=== PATIENT | male | born 1945 | race Caucasian/White ===

== ENCOUNTER 2017-06-14 08:53 | Day surgery (SDC) | payer MEDICARE ==
[~2017-06-14] VITALS: Ht 188 cm; Wt 115.0 kg
[~2017-06-14 08:53] MED LIST: AMAR4TAB PO; ANDROGEL PO; ASPI81CH5 CHEW; COZA100T PO; JANUVIA PO; METF-324 PO; RHINSUS
[2017-06-14 09:05] VITALS: BP 141/60; PULSE 76; RESP 20; TEMP 97.6; O2SAT 96
[2017-06-14] MEDS ORDERED: SODIUM CHLORIDE 0.9% 1000 ML IV SCH (09:30)
[2017-06-14] MEDS ORDERED: MULT-65 PO (09:54)
[2017-06-14] MEDS ORDERED: JANU50TA8 PO (09:54)
[2017-06-14] MEDS ORDERED: PRAV20TA2 PO (09:54)
[2017-06-14] MEDS ORDERED: BICA50TA PO (09:54)
[2017-06-14] MEDS ORDERED: GLIM4TAB PO (09:54)
[2017-06-14] MEDS ORDERED: LUPR11.22 IM (09:54)
[2017-06-14] MEDS ORDERED: ASPI81CH6 CHEW (09:54)
[2017-06-14] MEDS ORDERED: GABA300C5 PO (09:54)
[2017-06-14] MEDS ORDERED: LOSA100T PO (09:54)
[2017-06-14] MEDS ORDERED: CANA300T PO (09:54)
[2017-06-14] MEDS ORDERED: LIDOCAINE HCL 1% 20 ML VIAL ONE (10:04)
[2017-06-14] MEDS ORDERED: MIDAZOLAM HCL 2 MG/2 ML VIAL ONE ×2 (10:16→10:37)
--- NOTE | 2017-06-14 11:01 | PD.RAD ---
Post CT Procedure Prog Note Pre Procedure Diagnosis: (1) Lymphocele after surgical procedure Post Procedure Diagnosis: (1) Lymphocele after surgical procedure Procedure Date: Jun 14, 2017 Supervising Radiologist: Inder Zavala Proceduralist/Assist: Angy Estimated blood loss: none Anesthesia: Conscious Sedation Plan of Activity Patient to Unit: [facility] Patient Condition: Good See PACS Report for procedural detail/treatment Inder Zavala MD Jun 14, 2017 11:01
[2017-06-14 11:10] VITALS: BP 123/74; PULSE 62; RESP 18; O2SAT 95
[2017-06-14 11:25] VITALS: BP 124/75; PULSE 71; RESP 18; O2SAT 94
[2017-06-14 11:55] VITALS: BP 124/82; PULSE 75; RESP 16; O2SAT 75
[2017-06-14 12:25] VITALS: BP 138/82; PULSE 68; RESP 18; O2SAT 95
[2017-06-14 12:55] VITALS: BP 135/74; PULSE 75; RESP 16; O2SAT 94
--- NOTE | 2017-06-14 15:38 | RADRPT ---
EXAM DATE/TIME: 06/14/2017 10:26 [facility] COMPARISON: No previous studies available for comparison. INDICATIONS : Lymphocele. SEDATION TIME: 40 minutes MEDICATION(S): 1.) 2 mg midazolam (Versed) IV 2.) 100 mcg fentanyl (Sublimaze) IV DEVICE(S): 1.) 18 gauge Jacobs blunt needle FLUID: Total volume of 15 cc of clear, yellow fluid was removed. Fluid was discarded. MEDICAL HISTORY : Hypertension. diabetes SURGICAL HISTORY : Prostatectomy. ENCOUNTER: Initial ACUITY: 1 month PAIN SCORE: 5/10 LOCATION: Right pelvis PROCEDURE: 1.) Conscious sedation with continuous EKG and oximetry monitoring. 2.) EKG and oximetry remained stable throughout the procedure. PROCEDURE : CT guided aspiration of right pelvic fluid collection/lymphocele. The risks, benefits and alternatives to the procedure were explained and verbal and written consent w as obtained. Using automated exposure control and adjustment of the mA and/or kV according to patien t size, radiation dose was kept as low as reasonably achievable to obtain optimal diagnostic quality images. The site was prepped in sterile fashion. Full sterile technique was used, including cap, ma sk, sterile gloves and gown and a large sterile sheet. Hand hygiene and 2% chlorhexidine and/or beta dine/alcohol prep was utilized per protocol for cutaneous antisepsis. The skin and subcutaneous tiss ues were infiltrated with local anesthetic solution. DICOM format image data is available electronic ally for review and comparison. Needle was placed within the right pelvis from right anterior approach. Approximately 10 cc of straw- colored fluid aspirated. CONCLUSION: Uncomplicated aspiration of right pelvic lymphocele as above. Inder Zavala MD on June 14, 2017 at 15:34 Board Certified Radiologist. This report was verified electronically.
--- NOTE | 2017-06-14 15:42 | RADRPT ---
EXAM DATE/TIME: 06/14/2017 10:26 [facility] COMPARISON: No previous studies available for comparison. INDICATIONS : Lymphocele. SEDATION TIME: 40 MEDICATION(S): 1.) 2 mg midazolam (Versed) IV 2.) 100 mcg fentanyl (Sublimaze) IV DEVICE(S): 1.) 18 gauge Jacobs blunt needle FLUID: Total volume of 15 cc of clear, yellow fluid was removed. Fluid was discarded. MEDICAL HISTORY : Hypertension. diabetes SURGICAL HISTORY : Prostatectomy. ENCOUNTER: Initial ACUITY: 1 month PAIN SCORE: 5/10 LOCATION: Right pelvis PROCEDURE: 1.) Conscious sedation with continuous EKG and oximetry monitoring. 2.) EKG and oximetry remained stable throughout the procedure. PROCEDURE : CT guided ablation of right pelvic fluid collection/lymphocele. The risks, benefits and alternatives to the procedure were explained and verbal and written consent w as obtained. Using automated exposure control and adjustment of the mA and/or kV according to patien t size, radiation dose was kept as low as reasonably achievable to obtain optimal diagnostic quality images. The site was prepped in sterile fashion. Full sterile technique was used, including cap, ma sk, sterile gloves and gown and a large sterile sheet. Hand hygiene and 2% chlorhexidine and/or beta dine/alcohol prep was utilized per protocol for cutaneous antisepsis. The skin and subcutaneous tiss ues were infiltrated with local anesthetic solution. DICOM format image data is available electronic ally for review and comparison. After placement of the Jacobs needle within the right pelvic fluid collection and after aspiration o f approximately 15 cc of straw-colored fluid, 15 cc of Betadine was injected into this fluid collecti on endovaginally aspirated. CONCLUSION: Successful ablation of right pelvic fluid collection/lymphocele as above. Inder Zavala MD on June 14, 2017 at 15:35 Board Certified Radiologist. This report was verified electronically.
== END 2017-06-14 13:45 | disposition home or self-care (01) ==
LOC: HRAD 08:53 → HRIP 08:53 → HRAD 13:45
PROVIDERS: ATTEND Urology
DX: N99.89 Other postprocedural complications and disorders of genitourinary system (principal); I89.8 Other specified noninfective disorders of lymphatic vessels and lymph nodes; E78.00 Pure hypercholesterolemia, unspecified; G47.30 Sleep apnea, unspecified; E11.9 Type 2 diabetes mellitus without complications; M10.9 Gout, unspecified
CPT/HCPCS: 10160; 50390; 77012; 77013; 99152; 99153; J2250; J3010

== ENCOUNTER 2018-03-14 05:14 | Inpatient (IN) ==
[2018-03-14] MEDS ORDERED: Metoprolol Tartrate 25 MG Tablet PO ONE (05:39)
[2018-03-14] MEDS ORDERED: Chlorhexidine Gluconate 2% 1 Pack (2 Cloths) TOPICAL ONE (05:39)
[2018-03-14] MEDS ORDERED: Sodium Chlor 0.9% Inj 40 ML, Bupivacaine Liposo PF 1.3% Inj 20 ML P-ARTICULR SCH ×2 (05:42)
[2018-03-14] MEDS ORDERED: Chlorhexidine 4% Topical 120 APPLIC/120 ML Bottle TOPICAL SCH (05:45)
[2018-03-14] MEDS ORDERED: SODIUM CHLOR 0.9% IV.SIG SCH ×2 (06:00→08:43)
[2018-03-14] MEDS ORDERED: ceFAZolin 2 GM Premix Inj 2 GM/50 ML PIGGYBACK IV.SIG SCH (06:00)
[2018-03-14] MEDS ORDERED: TRANEXAMIC ACID IV.SIG SCH ×2 (06:00→08:43)
[2018-03-14] MEDS ORDERED: Sodium Chlor 0.9% Inj 500 ML IV.SIG SCH (06:00)
[2018-03-14] MEDS ORDERED: Famotidine PF Inj 20 MG/2 ML Vial ONE (06:19)
[2018-03-14] MEDS ORDERED: Acetaminophen 325 MG Tablet PO PRN (06:42)
[2018-03-14] MEDS ORDERED: Post-op Orders (for Pharmacy) OTHER STA (06:42)
[2018-03-14] MEDS ORDERED: Aluminum/Magnesium/Simethacone Susp 30 ML UDC PO PRN (06:42)
[2018-03-14] MEDS ORDERED: Bisacodyl 10 MG Supp RECTAL PRN (06:42)
[2018-03-14] MEDS ORDERED: Zolpidem Tartrate 5 MG Tablet PO PRN (06:42)
[2018-03-14] MEDS ORDERED: Tranexamic Acid Inj 0 MG in Sodium Chlor 0.9% Inj 100 ML IV.SIG ONE (06:42)
[2018-03-14] MEDS ORDERED: fentaNYL Citrate Inj 100 MCG/2 ML Ampul ONE (06:44)
[2018-03-14] MEDS ORDERED: Propofol Inj 500 MG/50 ML Vial ONE (06:44)
[2018-03-14] MEDS ORDERED: LEUPROLIDE 7.5 MG IM SCH (06:45)
--- NOTE | 2018-03-14 06:45 | P.DCO ---
- Physical Therapy Physical Therapy: Gait training Hip: Total hip, Protocol: Right, Posterior hip precautions, Progress to weight bearing Canvas Knee Splint: When in bed with 2 pillows between thighs Right Lower Extremity Weight Bearing: Weight bearing as tolerated Right Lower Extremity Range of Motion: Active ROM - Nursing Nursing: Dressing changes (Do not remove Dermabond Prineo (the tape that is directly on the wound).Leave the Optifoam dressing in place for 7 days. After this, daily dressing changes will be done taking care to avoid injuring or removing the Dermabond Prineo.) Dressing changes: Other (Do not remove Dermabond Prineo (the tape that is directly on the wound).Leave the Optifoam dressing in place for 7 days. After this, daily dressing changes will be done taking care to avoid injuring or removing the Dermabond Prineo.) - Case Management Consult Case Management Consult-Home Health: Yes - Certification Need for Home Health services: I have seen patient Rahat Sanchez on 03/14/18. My clinical findings support the need for the requested home health care services because: Need for Home Health Services: Deconditioned with increased weakness, Limited ability to care for self, High risk of falls Homebound Certification: I certify that my clinical findings support that this patient is homebound because: Homebound Certification: Post-op weakness, Unsteady gait/balance, Unsafe to leave home unassisted
[2018-03-14] MEDS ORDERED: Non-Formulary Drug (Sitagliptin-Metformin [Janumet] 1 TAB) PO SCH (09:00)
--- NOTE | 2018-03-14 09:09 | P.OP ---
- Preoperative Diagnosis (1) Primary osteoarthritis of right hip - Postoperative Diagnosis (1) Primary osteoarthritis of right hip Date of procedure: 03/14/18 Procedure: Right total hip arthroplasty using Monica prosthesis. Anesthesia: local (Exparel), spinal Surgeon: Chase Pfeiffer MD [employer] Systems Architect: JAVAN Smith Estimated blood loss (mL): 400 Pathology: none sent Operation and Findings: Indications and Findings: This 72-year-old man has had long-standing pain in his right hip nonresponsive to conservative measures including anti- inflammatory agents, analgesics, ambulatory aids. He has a limited ambulation tolerance to about 1 mile with pain and limping. He has difficulty ascending and descending stairs and standing from a seated position especially after sitting for any length of time. Treatment has included anti-inflammatory agents , analgesics, exercise, intra-articular corticosteroids, physical therapy, and activity modification. Physical findings showed limited range of motion with an antalgic gait and tenderness on motion. X-rays showed severe osteoarthritis with loss of articular cartilage to [id number], osteophytes and subchondral sclerosis. Operative findings: There was severe osteoarthritis in the right hip with loss of articular cartilage to [id number], femoral and acetabular osteophytes and subchondral sclerosis. Implants: The acetabular component was a 54 mm Trident II cluster shell with a 36 mm inner diameter X3 polyethylene 0 degree liner. The femoral component was Accolade II size 6 x 132 degrees. The femoral head was 36 mm outer diameter Biolox Delta ceramic with -2.5 mm offset. The patient was brought to the clean air operating suite and a spinal anesthetic was administered. The patient was positioned into a lateral position with the operative hip up on a [employer] lateral positioner. The hip and lower extremity were prepped with alcohol, Hibiclens and ChloraPrep and draped in the usual manner with the hip draped free. Patient received prophylactic antibiotics preoperatively. The patient also received tranexamic acid preoperatively. An appropriate timeout procedure was carried out. An incision was made from the midportion of the greater trochanter proximally and posteriorly paralleling the fibers of the gluteus yamel. The incision was deepened through subcutaneous tissues down to the fascia wendy and gluteus fascia. The gluteus fascia was then split longitudinally in line with its fibers up to the upper portion of the fascia wendy. With wound towels in place, the Charnley retractor was inserted. The sciatic nerve was identified and protected throughout the procedure. Dissection was then carried down to the interval between the gluteus minimus and the piriformis. A retractor was inserted. The piriformis and obturator conjoined tendon was released from the greater trochanter and reflected off the capsule. A capsulotomy was made longitudinally along the femoral neck to the base of the femoral neck and then curved distally along the posterior aspect of the greater trochanter. The hip was internally rotated. Further release of the external rotators was carried out exposing the hip. The hip was dislocated. The femoral neck was transected at the appropriate level using the oscillating saw placement of appropriate retractors. The femoral head was removed. Preparation of the femur was initiated with a box osteotome followed by a curet to identify the medullary canal. Broaching was then initiated with the size 0 broach and went in 1 size increments up to size 6. The broach handle was removed. The femoral neck was then trimmed with a calcar planar. Attention was then directed to the acetabulum. Soft tissues were debrided from the acetabulum. Retractors were placed about the acetabulum. Reaming was then initiated with the 47 millimeter reamer and went in 1-2 mm increments up to the 54 millimeter diameter reamer. A trial reduction with the 54 millimeter trial prosthesis was carried out. When this was deemed to be appropriate, the trial prosthesis was removed. The acetabulum was irrigated and cleaned. The actual prosthesis as noted above was impacted into place and seated appropriately. Drill holes were made and sounded. Appropriate sized screws were inserted to stabilize the acetabulum further. The liner as noted above was inserted into the acetabular shell and impacted into place. Osteophytes were trimmed from the acetabulum. Local anesthetic was administered throughout the area of the acetabulum and anterior aspect of the femur. The trial neck was placed on the broach for the above-noted prosthesis. The femoral head trial was placed onto the femoral neck . A trial reduction was carried out. Adjustment was made as needed. The stability, leg length and motion were excellent. There was no pistoning. The trial prosthesis was removed. The broach was removed. The femoral component was impacted into the medullary canal of the femur after irrigation and suctioning. When this was appropriately seated a trial reduction was again carried out with the trial prosthesis. There was no pistoning. The leg length was appropriate. The stability and motion were excellent. The trial prosthesis was then removed. After cleaning and drying the trunion of the femoral component, the above-noted femoral head was impacted onto the trunnion. The hip was reduced. The stability and mobility were again checked along with leg lengths as noted above. The hip was positioned appropriately and closure commenced after the remainder of the local anesthetic was injected throughout the hip. The external rotators and capsule were repaired with #1 Vicryl interrupted transosseous sutures with a Krakw technique to reattach the external rotators and capsule to the posterior aspect of the greater trochanter. The capsule itself on the superior aspect was closed with #1 Vicryl interrupted [id number] sutures. The sciatic nerve was inspected. The fascia wendy and gluteus fascia were repaired with #1 Vicryl interrupted [id number] sutures. The subcutaneous tissues were closed with 2-0 Vicryl interrupted simple sutures with buried knots. The skin was closed with a continuous subcuticular closure of 4-0 Monocryl. The wound was then approximated with Dermabond Prineo. A silver impregnated dressing was applied to the hip. A knee immobilizer was applied to the leg. The patient was transferred from the operating room to the recovery room in satisfactory condition having tolerated the procedure well. Counts are correct. Specimens: None. Estimated blood loss: 400 mL
[2018-03-14] MEDS ORDERED: *morphine SULFATE 10 MG/ML PERIprocedure ONLY ONE ×3 (09:35→09:59)
[2018-03-14] MEDS ORDERED: Ketorolac Inj 30 MG/ML (IVP) Vial ONE (10:15)
[2018-03-14] MEDS ORDERED: *HYDROmorphone PF Inj 1 MG/ML Ampul PERIprocedural Use ONLY ONE (10:17)
[2018-03-14] MEDS ORDERED: CANAGLIFLOZIN 300 MG PO SCH (11:00)
--- NOTE | 2018-03-14 11:05 | XR ---
EXAM DATE: 03/14/2018 10:49 AM EST AGE/SEX: 72 years / Male INDICATIONS: Post-op total right hip arthroplasty. CLINICAL DATA: This is the patient's initial encounter. Patient reports that signs and symptoms have been present for 1 day and indicates a pain score of 4/10. MEDICAL/SURGICAL HISTORY: Diabetes mellitus type II. Hypertension. None. COMPARISON: POI, MR HIP W/O CONTRAST, RIGHT, 09/16/2017. . FINDINGS: A right total hip arthroplasty is noted. No fracture or dislocation. Bone density is normal. Alignmen t satisfactory. Femoral and acetabular components appear well seated. CONCLUSION: Satisfactory appearance of right hip arthroplasty. Electronically signed by: Fransico Interiano MD Board Certified Radiologist 03/14/2018 11:04 AM EST
[2018-03-14] MEDS: Glimepiride 4 MG Tablet PO SCH ×2 (12:15→20:57)
[2018-03-14] MEDS ORDERED: Tetracaine 0.5% Opth Drops 4 ML Bottle RIGHT EYE ONE (13:00)
[2018-03-14] MEDS: Multivitamin/Minerals Therapeutic Tablet PO SCH (13:09)
[2018-03-14] MEDS ORDERED: ceFAZolin 1 GM Premix Inj 1 GM/50 ML PIGGYBACK IV.SIG ONE (13:23)
[2018-03-14] MEDS: ceFAZolin Inj 1 GM in Sodium Chlor 0.9% Inj 100 ML IV.SIG SCH ×2 (14:42→20:56)
[2018-03-14] MEDS ORDERED: Artificial Tears Opth Drops 15 ML Bottle RIGHT EYE PRN ×2 (15:05)
--- NOTE | 2018-03-14 15:06 | P.CONIM ---
History of Present Illness Service: [facility] Consult date: 03/14/18 Reason for Consult: medical management Primary Care Provider: Peter Guardado MD Chief Complaint: right hip pain History of Present Illness: This 72-year-old male who has PMH of severe osteoarthritis, hypertension, diabetes mellitus type 2, prostate cancer status prostatectomy who had long-standing pain in his right hip nonresponsive to conservative measures who undergone right total hip arthroplasty using [place] prosthesis for severe osteoarthritis in the right hip with loss of articular cartilage to bone on bone, femoral and acetabular osteophytes and subchondral sclerosis. Medicine team was consulted for medical management. Patient seen and examined sitting in the chair, just came back from the surgery. Patient awake alert and oriented x3, physical therapy in the room with the patient. Patient complains of right hip pain that happened after the surgery, stated he feels like there is something on the right corner of the eye. Patient denies any blurriness or vision disturbance. Patient denies any headache or dizziness. At the moment right eye discomfort, status post treatment in PACU with eyedrops, instructed to remove eye patch at 6 PM. Patient stated pain controlled on the right hip, pain at 4 out of 10 in a scale. Patient denies any chest pain or shortness of breath, denies any abdominal pain, nausea, vomiting, diarrhea or constipation. Patient denies any fever or chills. Family in room, discussed family history and medications. Nursing room, discussed treatment plan. Review of Systems Review of Systems: all other systems reviewed are negative [facility] Medical History Medical History Diabetes mellitus type 2 in nonobese (Acute) Hypertension (Acute) Osteoarthritis (Acute) Prostate cancer (Acute) Arthritis (Acute) CPAP (continuous positive airway pressure) dependence (Acute) H/O prostate cancer (Acute) High cholesterol (Acute) History of anesthesia reaction (Acute) Hot flash in male (Acute) Hypertension (Acute) Sleep apnea (Acute) Wears glasses (Acute) Wears hearing aid in both ears (Acute) Surgical History Surgical History Status post prostatectomy (Acute) H/O myringoplasty (Acute) H/O prostatectomy (Acute) H/O repair of left rotator cuff (Acute) Hx of tonsillectomy (Acute) Status post cataract extraction of both eyes with insertion of intraocular lens (Acute) Family History Family History Brother Coronary artery disease ICD (implantable cardioverter-defibrillator) battery depletion Heart transplant candidate Social History Social History Substance History: No History of Abuse Second Hand Smoke Exposure: No Smoking Status: Former smoker Tobacco Type: Cigarettes How Often Do You Have a Drink Containing Alcohol: 2 to 3 times a week Recent Travel in [facility] within the Last 8 Weeks: No Recent Out of Country Travel within the Last 8 Weeks: No Medications and Allergies Allergies Allergy/AdvReac Type Severity Reaction Status Date / Time No Known Allergies Allergy Verified 03/14/18 06:06 Home Medications Medication Instructions Recorded Confirmed Type aspirin [Aspirin Low Dose] 81 mg PO DAILY 03/07/18 03/14/18 History bicalutamide 50 mg PO DAILY 03/07/18 03/14/18 History glimepiride 4 mg PO BID 03/07/18 03/14/18 History leuprolide [Lupron Depot] 7.5 mg IM [id number] 03/07/18 03/14/18 History losartan 100 mg PO DAILY 03/07/18 03/14/18 History megestrol 20 mg PO DAILY 03/07/18 03/14/18 History qdrbljwd-suu-ZH-lycopen-lutein 1 tab PO DAILY 03/07/18 03/14/18 History [Centrum Silver Men] pravastatin 20 mg PO HS 03/07/18 03/14/18 History sitagliptin-metformin [Janumet] 1 tab PO BID 03/07/18 03/14/18 History canagliflozin [Invokana] 300 mg PO DAILY 03/14/18 03/14/18 History Active Medications: Active Medications Acetaminophen (Tylenol) 650 mg PO Q6H PRN PRN Reason: Pain Less Than 3 On Scale Hydrocodone Bitart/Acetaminophen ([place] 7.5/325) 1 tab PO Q4H PRN PRN Reason: PAIN SCALE 4 TO 6 MODERATE Last Admin: 03/14/18 11:15 Dose: 1 tab Hydrocodone Bitart/Acetaminophen ([place] 7.5/325) 2 tab PO Q6H PRN PRN Reason: PAIN SCALE 7 TO 10 SEVERE Al Hydrox/Mg Hydrox/Simethicone (Mag-Al Plus Susp Liq) 30 ml PO Q6H PRN PRN Reason: INDIGESTION Al Hydroxide/Mg Hydroxide (Milk Of Temi Rubin) 30 ml PO BID PRN PRN Reason: Mild Constipation Aspirin (Aspirin Chew) 81 mg PO BID [facility] Last Admin: 03/14/18 12:15 Dose: 81 mg Bicalutamide (Casodex) 50 mg PO DAILY [facility] Last Admin: 03/14/18 13:00 Dose: 50 mg Bisacodyl (Dulcolax Supp) 10 mg RECTAL DAILY PRN PRN Reason: SEVERE CONSITIPATION Chlorhexidine Gluconate (Hibiclens 4% Topical) 1 applicatio TOPICAL ONCE [facility] Stop: 03/18/18 05:44 Sodium Chloride 40 ml/ (Bupivacaine Liposome 20 ml) 0 ml P-ARTICULR UNSCH X1 [facility] Stop: 03/14/18 15:00 Last Admin: 03/14/18 07:45 Dose: 60 bag Diphenhydramine HCl (Benadryl) 25 mg PO Q6H PRN PRN Reason: ITCHING Glimepiride (Amaryl) 4 mg PO BID [facility] Last Admin: 03/14/18 12:15 Dose: 4 mg Sodium Chloride (Ns Inj) 500 mls @ 30 mls/hr IV.SIG .Q10H [facility] Last Admin: 03/14/18 06:45 Dose: Not Given Lactated Ringer's (Lr 1000 Ml Inj) 1,000 mls @ 30 mls/hr IV.SIG .Q24H [facility] Stop: 03/15/18 05:44 Last Admin: 03/14/18 06:15 Dose: 30 mls/hr Tranexamic Acid 1,065 mg/ (Sodium Chloride) 110.65 mls @ 200 mls/hr IV.SIG ONCE [facility] Stop: 03/14/18 15:00 Last Admin: 03/14/18 10:50 Dose: 200 mls/hr Lactated Ringer's (Lr 1000 Ml Inj) 1,000 mls @ 80 mls/hr IV.CONT .[id number] [facility] Last Admin: 03/14/18 09:50 Dose: 80 mls/hr Cefazolin Sodium 1 gm/ Sodium (Chloride) 100 mls @ 100 mls/hr IV.SIG Q6H [facility] Stop: 03/15/18 02:59 Ketorolac Tromethamine (Toradol Inj) 15 mg IV.PUSH Q6H [facility] Stop: 03/16/18 10:01 Lactulose (Lactulose Liq) 30 ml PO DAILY PRN PRN Reason: SEVERE CONSITIPATION Losartan Potassium (Cozaar) 100 mg PO DAILY [facility] Megestrol Acetate (Megace) 20 mg PO DAILY [facility] Last Admin: 03/14/18 12:15 Dose: 20 mg Metformin HCl (Glucophage) 1,000 mg PO BID [facility] Last Admin: 03/14/18 13:00 Dose: 1,000 mg Miscellaneous (Pill Splitter) 1 each OTHER UNSCH [facility] Miscellaneous Information (Mis Nursing Information) 1 each OTHER UNSCH PRN PRN Reason: SEE LABEL COMMENTS Stop: 03/15/18 11:00 Morphine Sulfate (Morphine Inj) 2 mg IV.PUSH Q3H PRN PRN Reason: BREAKTHROUGH PAIN Multivitamins/Minerals (Theragran-M) 1 tab PO DAILY [facility] Last Admin: 03/14/18 13:09 Dose: Not Given Ondansetron HCl (Zofran Odt) 4 mg PO Q6H PRN PRN Reason: NAUSEA OR VOMITING Pt Own Med: Canagliflozin [ Invokana] 300 Mg 0 each PO DAILY [facility] Pravastatin Sodium (Pravachol) 20 mg PO HS [facility] Senna/Docusate Sodium (Anne-Colace) 1 tab PO BID [facility] Sennosides (Senokot) 17.2 mg PO BID PRN PRN Reason: Moderate Constipation Sitagliptin Phosphate (Januvia) 50 mg PO BID [facility] Last Admin: 03/14/18 13:08 Dose: 50 mg Sodium Chloride (Ns Flush) 2 ml IV.FLUSH BID [facility] Last Admin: 03/14/18 11:55 Dose: Not Given Sodium Chloride (Ns Flush) 2 ml IV.FLUSH PRN PRN PRN Reason: FLUSH AFTER USING IV ACCESS Zolpidem Tartrate (Ambien) 5 mg PO HS PRN PRN Reason: INSOMNIA Physical Exam Vital signs: Vital Signs 03/14/18 06:23 03/14/18 09:28 03/14/18 09:30 Temperature 98.0 F 97.6 F Pulse Rate 82 78 79 Respiratory Rate 20 18 18 Blood Pressure 109/69 112/60 107/56 L Pulse Oximetry 98 98 100 03/14/18 09:40 03/14/18 09:45 03/14/18 10:00 Temperature Pulse Rate 69 67 Respiratory Rate 19 14 Blood Pressure 102/55 L 98/57 L Pulse Oximetry 100 100 99 03/14/18 10:15 03/14/18 10:30 03/14/18 10:45 Temperature Pulse Rate 68 67 74 Respiratory Rate 20 13 24 Blood Pressure 98/54 L 116/60 114/56 L Pulse Oximetry 97 97 03/14/18 11:00 03/14/18 11:15 03/14/18 11:16 Temperature 97.4 F L Pulse Rate 69 75 75 Respiratory Rate 17 27 H 23 Blood Pressure 115/62 113/59 L Pulse Oximetry 95 98 98 03/14/18 11:30 03/14/18 11:45 03/14/18 12:00 Temperature Pulse Rate 69 81 73 Respiratory Rate 11 L 31 H 12 Blood Pressure 128/65 119/57 L Pulse Oximetry 95 99 98 03/14/18 12:15 03/14/18 12:30 03/14/18 12:45 Temperature Pulse Rate 72 72 74 Respiratory Rate 12 15 12 Blood Pressure Pulse Oximetry 97 96 97 03/14/18 13:00 03/14/18 13:15 Temperature Pulse Rate 79 78 Respiratory Rate 17 13 Blood Pressure 106/58 L Pulse Oximetry 97 96 Intake & Output 03/13/18 03/14/18 03/14/18 18:59 06:59 18:59 Intake Total 2099.65 / 2099.65 Output Total 400 / 400 Balance 1699.65 / 1699.65 Weight 106.3 kg Intake: IV 160.65 / 160.65 Cyklokapron Inj 1,065 MG In NS 110.65 / 110.65 Inj 100 ML @ 200 mls/hr IV.SIG ONCE [facility] Rx#:[id number] Ancef 2 GM Premix Inj 2 gm In 50 / 50 50 ml @ 100 mls/hr IV.SIG 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 HEAD: Atraumatic. Normocephalic. EYES: Pupils equal and round. No scleral icterus. No injection or drainage. Slight redness on right eye, with right eye patch ENT: No nasal bleeding or discharge. Mucous membranes pink and moist. NECK: Trachea midline. No JVD. CARDIOVASCULAR: Regular rate and rhythm. RESPIRATORY: No accessory muscle use. Clear to auscultation. Breath sounds equal bilaterally. GASTROINTESTINAL: Abdomen soft, non-tender, nondistended. Hepatic and splenic margins not palpable. MUSCULOSKELETAL: Extremities without clubbing, cyanosis. Right hip incision dressed clean dry and intact, no drainage noted no redness, with trace edema NEUROLOGICAL: Awake and alert. No obvious cranial nerve deficits. Motor grossly within normal limits. Five out of 5 muscle strength in the arms and legs except limited range of motion on right lower extremity. Normal speech. PSYCHIATRIC: Appropriate mood and affect; insight and judgment normal. Results Imaging Impressions Hip X-Ray 03/14/18 06:40 CONCLUSION: Satisfactory appearance of right hip arthroplasty. ABG Impressions Hip X-Ray 03/14/18 06:40 CONCLUSION: Satisfactory appearance of right hip arthroplasty. Assessment and Plan (1) Status post total replacement of right hip: Code(s): Z96.641 - Presence of right artificial hip joint Status: Acute Plan This 72-year-old male who has PMH of severe osteoarthritis, hypertension, diabetes mellitus type 2, prostate cancer status prostatectomy who had long-standing pain in his right hip nonresponsive to conservative measures who undergone right total hip arthroplasty Severe osteoarthritis With loss of articular cartilage to bone on bone Femoral and acetabular osteophytes and subchondral sclerosis Status post right total hip arthroplasty using [place] prosthesis on 03/14/18 per [place] -Management with orthopedic team -Prophylactic IV antibiotic, Ancef -Pain management with bowel regimen -Consult PT rehab per protocol -DVT prophylaxis with aspirin twice daily per Ortho -Weightbearing as tolerated, active range of motion, to pillows in between thighs when in bed Hypertension Hyperlipidemia -Blood pressure in the low side postop -Hold parameters for blood pressure medication -Continue losartan with hold parameters, and pravastatin -Monitor blood pressure, adjust medication as needed Diabetes mellitus type 2 -Blood sugar controlled -Continue home medication glimepiride, Invokana, Januvia, and metformin -Monitor fasting blood sugar before meals and at bedtime with insulin sliding scale History of prostate cancer Status post prostatectomy Hot flashes -Continue home medications, Lupron, Megace and Casodex, Right eye pain postop History of cataract -With right eye patch -Add lubricant -Monitor DVT prophylaxis: Early ambulation, aspirin twice daily per OrthO Code Status: Full code Discussed Condition With: Patient, family and nurse Discharge Planning: Plan for discharge with home health care, per orthopedic recommendation
[2018-03-14] MEDS: Ketorolac Inj 30 MG/ML (IVP) Vial IV.PUSH SCH ×2 (17:33→22:04)
[2018-03-14] MEDS: Senna/Docusate Sodium 8.6/50 MG Tablet PO SCH (20:57)
[2018-03-14] MEDS: Morphine Inj 4 MG/ML Vial IV.PUSH PRN (21:07)
[2018-03-15] MEDS: ceFAZolin Inj 1 GM in Sodium Chlor 0.9% Inj 100 ML IV.SIG SCH (02:42)
[2018-03-15] MEDS: Ketorolac Inj 30 MG/ML (IVP) Vial IV.PUSH SCH ×2 (04:11→10:27)
[2018-03-15 05:18] LABS: Hematocrit 30.8 % (39.0-51.0); Hemoglobin 10.8 gm/dL (13.0-17.0); Mean Corpuscular HGB Conc 35.1 % (32.0-36.0); Mean Corpuscular Volume 94.1 fL (80.0-100.0); Mean Platelet Volume 8.5 fL (7.0-11.0); Platelet Count 143 th/mm3 (150-450); Red Blood Count 3.28 mil/mm3 (4.50-5.90); Red Cell Distribution Width 14.4 % (11.6-17.2); White Blood Count 6.9 th/mm3 (4.0-11.0)
[2018-03-15 05:41] LABS: Calcium 9.1 mg/dL (8.5-10.1); Carbon Dioxide 24.1 meq/L (21.0-32.0); Potassium 4.2 meq/L (3.5-5.1)
--- NOTE | 2018-03-15 06:08 | P.PNOP ---
Subjective Interval history: Postop day #1 He is doing well. He has minimal complaints related to the hip at this time. He has been walking fairly well. He does have some pain. Physical therapy reports that the ambulation distance was 35 feet. Physical Exam Vital signs: Vital Signs 03/14/18 06:23 03/14/18 09:28 03/14/18 09:30 Temperature 98.0 F 97.6 F Pulse Rate 82 78 79 Respiratory Rate 20 18 18 Blood Pressure 109/69 112/60 107/56 L Pulse Oximetry 98 98 100 03/14/18 09:40 03/14/18 09:45 03/14/18 10:00 Temperature Pulse Rate 69 67 Respiratory Rate 19 14 Blood Pressure 102/55 L 98/57 L Pulse Oximetry 100 100 99 03/14/18 10:15 03/14/18 10:30 03/14/18 10:45 Temperature Pulse Rate 68 67 74 Respiratory Rate 20 13 24 Blood Pressure 98/54 L 116/60 114/56 L Pulse Oximetry 97 97 03/14/18 11:00 03/14/18 11:15 03/14/18 11:16 Temperature 97.4 F L Pulse Rate 69 75 75 Respiratory Rate 17 27 H 23 Blood Pressure 115/62 113/59 L Pulse Oximetry 95 98 98 03/14/18 11:30 03/14/18 11:45 03/14/18 12:00 Temperature Pulse Rate 69 81 73 Respiratory Rate 11 L 31 H 12 Blood Pressure 128/65 119/57 L Pulse Oximetry 95 99 98 03/14/18 12:15 03/14/18 12:30 03/14/18 12:45 Temperature Pulse Rate 72 72 74 Respiratory Rate 12 15 12 Blood Pressure Pulse Oximetry 97 96 97 03/14/18 13:00 03/14/18 13:15 03/14/18 16:00 Temperature 97.2 F L Pulse Rate 79 78 78 Respiratory Rate 17 13 14 Blood Pressure 106/58 L 98/57 L Pulse Oximetry 97 96 95 03/14/18 21:10 03/15/18 01:00 Temperature 97.7 F 97.7 F Pulse Rate 83 83 Respiratory Rate 18 17 Blood Pressure 108/52 L 99/57 L Pulse Oximetry 96 95 Intake & Output 03/14/18 03/14/18 03/15/18 06:59 18:59 06:59 Intake Total 2629.65 / 2629.65 100 / 100 Output Total 1400 / 1400 Balance 1229.65 / 1229.65 100 / 100 Weight 106.3 kg 106.141 kg Intake: IV 210.65 / 210.65 100 / 100 Cyklokapron Inj 1,065 MG In NS 110.65 / 110.65 Inj 100 ML @ 200 mls/hr IV.SIG ONCE [facility] Rx#:[id number] Ancef 1 GM Premix Inj 1 gm In 50 / 50 50 ml @ 0 mls/hr IV.SIG .STK- MED ONE Rx#:[id number] Ancef 2 GM Premix Inj 2 gm In 50 / 50 50 ml @ 100 mls/hr IV.SIG 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 The dressing is dry and intact. His neurovascular status is intact. - Urinary Catheter Management Straight Cath placed during this visit: yes, but has since been removed by the nurse Reason for continuing: Not indwelling catheter Insertion date: 03/14/18 Insertion time: 11:00 Removal date: 03/14/18 Removal time: 11:10 Results - Labs CBC & Chem 7: 03/15/18 04:58 03/15/18 04:58 Laboratory Results - last 24 hr 03/14/18 03/14/18 03/14/18 06:15 13:02 21:00 WBC RBC Hgb Hct MCV MCH MCHC RDW Plt Count MPV Sodium Potassium Chloride Carbon Dioxide Anion Gap BUN Creatinine Estimated GFR POC Glucose 221 H 261 H Random Glucose Calcium Blood Type O Positive Blood Type Recheck Required Antibody Screen Negative 03/15/18 03/15/18 04:58 04:58 WBC 6.9 RBC 3.28 L Hgb 10.8 L Hct 30.8 L MCV 94.1 MCH 33.0 MCHC 35.1 RDW 14.4 Plt Count 143 L MPV 8.5 Sodium 139 Potassium 4.2 Chloride 108 H Carbon Dioxide 24.1 Anion Gap 7 BUN 27 H Creatinine 1.12 Estimated GFR 65 L POC Glucose Random Glucose 210 H Calcium 9.1 Blood Type Blood Type Recheck Antibody Screen - Imaging Impressions Hip X-Ray 03/14/18 06:40 CONCLUSION: Satisfactory appearance of right hip arthroplasty. - Procedures Right total hip arthroplasty using [place] prosthesis on 03/14/2018 Assessment and Plan - Ortho Post Op Day # 1 - Problem List (1) Status post total replacement of right hip Code(s): Z96.641 - Presence of right artificial hip joint Status: Acute Plan: Continue postop care and PT. - Assessment and Plan Condition: Good. Orthopedically stable. DVT prophylaxis: TEDs, aspirin, sequentials. Discharge plans: Home with home health care. An appointment was scheduled through the office. Prescriptions: 7.5/325; Patient is having significant pain caused by a total hip replacement which will last more than 3 days. Trial of Tylenol has not helped. I believe that it is medically necessary to treat patients pain because it is affecting patients ability to participate in postoperative rehabilitation and perform activities of daily living in a comfortable and efficient manner. I have checked the [employer] database prior to completing the prescription.
--- NOTE | 2018-03-15 06:29 | P.DS ---
Date of admission: 03/14/18 05:14 Primary care physician: Peter Guardado MD Attending physician on discharge: Chase Pfeiffer Anticipated date of discharge: 03/15/18 Brief History from admission: This 72-year-old man has had long-standing right hip which has been nonresponsive to conservative measures as detailed in the history and physical examination. He has not responded to anti-inflammatory agents, analgesics, ambulatory aids and the like. He complains of pain in the hip with ambulation and rest pain. Physical findings showed significant antalgic gait with tenderness on range of motion. There is limited range of motion of the hip. Radiographic findings showed significant loss of articular cartilage to bone-on- bone, osteophytes and subchondral sclerosis. DS: Diagnosis - Discharge Diagnosis (1) Status post total replacement of right hip Status: Acute Diagnosis: Principal (2) Primary osteoarthritis of right hip Status: Chronic Diagnosis: Principal DS: Medications - Discharge Medications Prescriptions: hydrocodone-acetaminophen 1 tab PO Q4H PRN 7 Days #42 tab PRN Reason: Pain DS: Summary Hospital Course: The patient was admitted as noted above. The above noted operative procedure was carried out that day. Preoperatively prophylactic antibiotics were administered Ancef according to protocol. These were continued postoperatively. The patient also received tranexamic acid to help with hemostasis according to protocol. In the postanesthesia care unit mechanical methods of DVT prophylaxis in the form of BRIAN stockings and sequentials were initiated. Physical therapy was initiated on the day of surgery. On postoperative day #1 physical therapy continued. DVT prophylaxis with aspirin 81 mg twice daily was initiated at this time. The patient continued physical therapy throughout the hospitalization. The distance walked and range of motion improved throughout the hospitalization. The patient was discharged on postoperative day 1 with the disposition being to home with home health care. An appointment for follow-up was made prior to admission. - Time Spent with Patient Total time spent providing and/or coordinating discharge services: Less than 30 minutes - Quality: VTE Deep Vein Thrombosis/Pulmonary Embolism Present on Admission: No Exam Vital signs: Vital Signs 03/14/18 09:28 03/14/18 09:30 03/14/18 09:40 Temperature 97.6 F Pulse Rate 78 79 Respiratory Rate 18 18 Blood Pressure 112/60 107/56 L Pulse Oximetry 98 100 100 03/14/18 09:45 03/14/18 10:00 03/14/18 10:15 Temperature Pulse Rate 69 67 68 Respiratory Rate 19 14 20 Blood Pressure 102/55 L 98/57 L 98/54 L Pulse Oximetry 100 99 97 03/14/18 10:30 03/14/18 10:45 03/14/18 11:00 Temperature 97.4 F L Pulse Rate 67 74 69 Respiratory Rate 13 24 17 Blood Pressure 116/60 114/56 L 115/62 Pulse Oximetry 97 95 03/14/18 11:15 03/14/18 11:16 03/14/18 11:30 Temperature Pulse Rate 75 75 69 Respiratory Rate 27 H 23 11 L Blood Pressure 113/59 L 128/65 Pulse Oximetry 98 98 95 03/14/18 11:45 03/14/18 12:00 03/14/18 12:15 Temperature Pulse Rate 81 73 72 Respiratory Rate 31 H 12 12 Blood Pressure 119/57 L Pulse Oximetry 99 98 97 03/14/18 12:30 03/14/18 12:45 03/14/18 13:00 Temperature Pulse Rate 72 74 79 Respiratory Rate 15 12 17 Blood Pressure 106/58 L Pulse Oximetry 96 97 97 03/14/18 13:15 03/14/18 16:00 03/14/18 21:10 Temperature 97.2 F L 97.7 F Pulse Rate 78 78 83 Respiratory Rate 13 14 18 Blood Pressure 98/57 L 108/52 L Pulse Oximetry 96 95 96 03/15/18 01:00 Temperature 97.7 F Pulse Rate 83 Respiratory Rate 17 Blood Pressure 99/57 L Pulse Oximetry 95 Intake & Output 03/14/18 03/14/18 03/15/18 06:59 18:59 06:59 Intake Total 2629.65 / 2629.65 100 / 100 Output Total 1400 / 1400 Balance 1229.65 / 1229.65 100 / 100 Weight 106.3 kg 106.141 kg Intake: IV 210.65 / 210.65 100 / 100 Cyklokapron Inj 1,065 MG In NS 110.65 / 110.65 Inj 100 ML @ 200 mls/hr IV.SIG ONCE [facility] Rx#:[id number] Ancef 1 GM Premix Inj 1 gm In 50 / 50 50 ml @ 0 mls/hr IV.SIG .STK- [facility] Rx#:[id number] Ancef 2 GM Premix Inj 2 gm In 50 / 50 50 ml @ 100 mls/hr IV.SIG INFORMATION RESOURCES MANAGER [facility] Rx#:[id number] Ancef Inj 1 GM In NS Inj 100 ML 100 / 100 @ 100 mls/hr IV.SIG Q6H [facility] Rx #:[id number] Oral 480 / 480 Anesthesia Amount 1938 Output: Estimated Blood Loss 400 / 400 Urine Amount (Catheter) 1000 / 1000 Straight 1000 / 1000 Other: Weight On Admission 106.3 kg Narrative: He is resting comfortably, supine in bed. The dressing is dry and intact. His neurovascular status is intact. Results Procedures completed during hospitalization: Right total hip arthroplasty using [place] prosthesis on 03/14/2018 Labs on day of discharge: Labs from last 24 hours 03/15/18 03/15/18 03/14/18 04:58 04:58 21:00 WBC 6.9 RBC 3.28 L Hgb 10.8 L Hct 30.8 L MCV 94.1 MCH 33.0 MCHC 35.1 RDW 14.4 Plt Count 143 L MPV 8.5 Sodium 139 Potassium 4.2 Chloride 108 H Carbon Dioxide 24.1 Anion Gap 7 BUN 27 H Creatinine 1.12 Estimated GFR 65 L POC Glucose 261 H Random Glucose 210 H Calcium 9.1 Blood Type Blood Type Recheck Antibody Screen 03/14/18 03/14/18 13:02 06:15 WBC RBC Hgb Hct MCV MCH MCHC RDW Plt Count MPV Sodium Potassium Chloride Carbon Dioxide Anion Gap BUN Creatinine Estimated GFR POC Glucose 221 H Random Glucose Calcium Blood Type O Positive Blood Type Recheck Required Antibody Screen Negative - Impressions ITS Impressions Hip X-Ray 03/14/18 06:40 CONCLUSION: Satisfactory appearance of right hip arthroplasty. Discharge Plan - Discharge Disposition Patient Disposition: Disch W/Home Health Service - Discharge Condition Condition: Stable - Discharge Order Discharge Orders: Discharge Order (Routine); Ordered 03/15/18 Ordered By: Chase Pfeiffer - Discharge Details Anticipated Discharge Date: 03/15/18 - Physicians Team Primary Care Provider: Peter Guardado Attending Provider: Chase Pfeiffer Other Providers: Alana Zamora MD - Rxs /Orders / Referrals /Forms Prescriptions: New aspirin 81 mg Tablet,Chewable 81 mg PO BID RF: 0 hydrocodone-acetaminophen 7.5-325 mg Tablet 1 tab PO Q4H PRN (Reason: Pain) 7 Days Qty: 42 RF: 0 Continue bicalutamide 50 mg Tablet 50 mg PO DAILY canagliflozin [Invokana] 300 mg Tablet 300 mg PO DAILY glimepiride 4 mg Tablet 4 mg PO BID leuprolide [Lupron Depot] 7.5 mg Syringe Kit 7.5 mg IM [id number] losartan 100 mg Tablet 100 mg PO DAILY megestrol 20 mg Tablet 20 mg PO DAILY [id number]-adg-NQ-lycopen-lutein [Centrum Silver Men] 300-600-300 mcg Tablet 1 tab PO DAILY pravastatin 20 mg Tablet 20 mg PO HS sitagliptin-metformin [Janumet] 50-1,000 mg Tablet 1 tab PO BID Discontinued aspirin [Aspirin Low Dose] 81 mg Tablet,Delayed Release (Dr/Ec) 81 mg PO DAILY Referrals: Chase Pfeiffer MD [Physician] - See Instructions Peter Guardado MD [Primary Care Provider] - See Instructions - Discharge Instructions Patient Printed Instructions: Total Hip Replacement (DC)
[2018-03-15] MEDS: Glimepiride 4 MG Tablet PO SCH (08:14)
[2018-03-15] MEDS: Multivitamin/Minerals Therapeutic Tablet PO SCH (08:14)
[2018-03-15] MEDS: Morphine Inj 4 MG/ML Vial IV.PUSH PRN (08:15)
[2018-03-15] MEDS: Senna/Docusate Sodium 8.6/50 MG Tablet PO SCH (09:48)
--- NOTE | 2018-03-15 14:42 | P.PNIM ---
Subjective Interval history: Follow-up for severe osteoarthritis, status post right total hip arthroplasty, hypertension, diabetes mellitus type 2, prostate cancer status prostatectomy. Patient seen and examined, sitting in the chair, stated feeling better and ready to go home. Patient denies any pain or discomfort. Patient stated he is up ambulating with walker with no problem. Patient denies any headache or dizziness, denies any chest pain or shortness of breath, denies any abdominal pain, nausea,or vomiting. Patient stated had a good bowel movement yesterday before the surgery. And stated he has stool softeners to use. Patient denies any fever or chills. in the room Physical Exam Vital signs: Vital Signs 03/14/18 16:00 03/14/18 21:10 03/15/18 01:00 Temperature 97.2 F L 97.7 F 97.7 F Pulse Rate 78 83 83 Respiratory Rate 14 18 17 Blood Pressure 98/57 L 108/52 L 99/57 L Pulse Oximetry 95 96 95 03/15/18 05:00 03/15/18 08:00 03/15/18 12:00 Temperature 97.9 F 97.5 F L 97.5 F L Pulse Rate 84 87 95 H Respiratory Rate 17 16 18 Blood Pressure 109/56 L 142/64 H 100/55 L Pulse Oximetry 96 100 96 Intake & Output 03/14/18 03/15/18 03/15/18 18:59 06:59 18:59 Intake Total 2629.65 / 2629.65 920 / 920 Output Total 1400 / 1400 Balance 1229.65 / 1229.65 920 / 920 Weight 106.141 kg 106 kg Intake: IV 210.65 / 210.65 200 / 200 Cyklokapron Inj 1,065 MG In NS 110.65 / 110.65 Inj 100 ML @ 200 mls/hr IV.SIG ONCE [facility] Rx#:[id number] Ancef 1 GM Premix Inj 1 gm In 50 / 50 50 ml @ 0 mls/hr IV.SIG .STK- MED ONE Rx#:[id number] Ancef 2 GM Premix Inj 2 gm In 50 / 50 50 ml @ 100 mls/hr IV.SIG CUSTODY ASSISTANT [facility]UONG Rx#:[id number] Ancef Inj 1 GM In NS Inj 100 ML 200 / 200 @ 100 mls/hr IV.SIG Q6H [facility] Rx #:[id number] Oral 480 / 480 720 / 720 Anesthesia Amount 1938 / 1938 Output: Estimated Blood Loss 400 / 400 Urine Amount (Catheter) 1000 / 1000 Straight 1000 / 1000 Other: # Voids 3 Date of Last Bowel Movement 03/15/18 # Bowel Movements 0 Narrative: GENERAL: Well-developed, well-nourished, male in no apparent distress SKIN: Warm and dry. HEAD: Atraumatic. Normocephalic. EYES: Pupils equal and round. No scleral icterus. No injection or drainage. Slight redness on right eye, with right eye patch ENT: No nasal bleeding or discharge. Mucous membranes pink and moist. NECK: Trachea midline. No JVD. CARDIOVASCULAR: Regular rate and rhythm. RESPIRATORY: No accessory muscle use. Clear to auscultation. Breath sounds equal bilaterally. GASTROINTESTINAL: Abdomen soft, non-tender, nondistended. Hepatic and splenic margins not palpable. MUSCULOSKELETAL: Extremities without clubbing, cyanosis. Right hip incision dressed clean dry and intact, no drainage noted no redness, with trace edema NEUROLOGICAL: Awake and alert. No obvious cranial nerve deficits. Motor grossly within normal limits. Five out of 5 muscle strength in the arms and legs except limited range of motion on right lower extremity. Normal speech. PSYCHIATRIC: Appropriate mood and affect; insight and judgment normal. Urinary Catheter Management Straight: Cath placed during this visit: yes, but has since been removed by the nurse Reason for continuing: Not indwelling catheter Insertion date: 03/14/18 Insertion time: 11:00 Removal date: 03/14/18 Removal time: 11:10 Results Labs CBC & Chem 7: 03/15/18 04:58 03/15/18 04:58 Procedures Procedures: Right total hip arthroplasty using [place] prosthesis on 03/14/2018 Assessment and Plan (1) Status post total replacement of right hip: Code(s): Z96.641 - Presence of right artificial hip joint Status: Acute (2) Primary osteoarthritis of right hip: Code(s): M16.11 - Unilateral primary osteoarthritis, right hip Status: Chronic Plan This 72-year-old male who has PMH of severe osteoarthritis, hypertension, diabetes mellitus type 2, prostate cancer status prostatectomy who had long-standing pain in his right hip nonresponsive to conservative measures who undergone right total hip arthroplasty Severe osteoarthritis With loss of articular cartilage to bone on bone Femoral and acetabular osteophytes and subchondral sclerosis Status post right total hip arthroplasty using [place] prosthesis on 03/14/18 per [facility] -Management with orthopedic team -Prophylactic IV antibiotic, Ancef -Pain management with bowel regimen -Consult PT rehab per protocol -DVT prophylaxis with aspirin twice daily per Ortho -Weightbearing as tolerated, active range of motion, to pillows in between thighs when in bed Hypertension Hyperlipidemia -Blood pressure in the low side postop, same as baseline, low side on admission 109/69 -Hold parameters for blood pressure medication -Decrease losartan dose, and continue pravastatin -Monitor blood pressure, adjust medication as needed -Follow-up with PCP, Dr. Guardado in 3 days Diabetes mellitus type 2 -Blood sugar controlled -Continue home medication glimepiride, Invokana, Januvia, and metformin -Monitor fasting blood sugar before meals and at bedtime with insulin sliding scale History of prostate cancer Status post prostatectomy Hot flashes -Continue home medications, Lupron, Megace and Casodex, Right eye pain postop History of cataract -With right eye patch -Add lubricant -Improved Anemia -Likely related to surgical blood loss -Asymptomatic -Monitor CBC, as an outpatient, results to PCP Dr. Melchor -Follow-up with PCP in 3 days DVT prophylaxis: Early ambulation, aspirin twice daily per OrthO Discharge Planning: Plan for discharge with home health care, per orthopedic recommendation Progress Note: Quality VTE Deep Vein Thrombosis/Pulmonary Embolism Present on Admission: No
== END 2018-03-15 15:28 | disposition home health service (06) | DRG 470 ==
LOC: HSDI 05:14 → N06 13:59
PROVIDERS: ADMIT Orthopaedic Surgery; ATTEND Orthopaedic Surgery
DX: Z90.79 Acquired absence of other genital organ(s); D64.9 Anemia, unspecified; I10 Essential (primary) hypertension; Z85.46 Personal history of malignant neoplasm of prostate; Z96.1 Presence of intraocular lens; Z97.4 Presence of external hearing-aid; Z87.891 Personal history of nicotine dependence; H57.11 Ocular pain, right eye; R53.1 Weakness; Z98.41 Cataract extraction status, right eye; M25.751 Osteophyte, right hip; Z79.84 Long term (current) use of oral hypoglycemic drugs; M24.151 Other articular cartilage disorders, right hip; Z82.49 Family history of ischemic heart disease and other diseases of the circulatory system; M16.11 Unilateral primary osteoarthritis, right hip; E11.9 Type 2 diabetes mellitus without complications; Z98.42 Cataract extraction status, left eye; E78.5 Hyperlipidemia, unspecified
CPT/HCPCS: 73502; 80048; 82948; 82962; 85027; 86850; 86900; 86901; 97110; 97116; 97150; 97162; 97167; 97530; C1776; C9290; J0131; J0690; J1170; J1580; J1885; J2250; J2270; J2704; J3010; J7120; L1830